=== PATIENT | male | born 1955 | race Hispanic/Latino ===

== ENCOUNTER 2017-02-22 22:30 | Emergency (ER) | payer OTHER ==
[2017-02-22 22:34] VITALS: BMI 26.7
[2017-02-22 22:42] VITALS: BP 139/89; PULSE 72; RESP 18; TEMP 98.7; O2SAT 98
[2017-02-22] MEDS ORDERED: Morphine 2 mg/ml ISec IVP STA (22:55)
[2017-02-22 22:56] LABS: BASO # 0.01 K/mm3 (0.0-2.0); BASO % 0.1 % (0.0-3.0); EOS # 0.1 (0.0-0.7); EOS % 1.1 % (1.5-5.0); GRAN # 5.39 (1.4-6.5); GRAN % 71.3 % (50.0-68.0); HEMOGLOBIN 14.2 gm/dL (14.0-18.0); LYMPH # 1.2 (1.2-3.4); LYMPH % 15.8 % (22.0-35.0); MEAN CELL VOLUME 94.7 fL (80.0-105.0); MEAN CORPUSCULAR HGB CONC 34.9 g/dl (31.0-37.0); MEAN PLATELET VOLUME 10.1 fl (7.0-11.0); MONO # 0.9 (0.1-0.6); MONO % 11.7 % (1.0-6.0); PLATELET COUNT 229 10^3/uL (120.0-450.0); RED CELL DISTRIBUTION WIDTH 13.4 % (11.5-14.5); WHITE BLOOD COUNT 7.6 10^3/ul (4.5-11.0)
--- NOTE | 2017-02-22 22:59 | ED PDOC ---
Arrival/HPI - General Chief Complaint: Abdominal Pain Time Seen by Provider: 02/22/17 22:34 Historian: Patient - History of Present Illness Narrative History of Present Illness (Text): 02/22/17 22:55 Dale Marcial is a 62 year old male, with a history of renal colic and PE, presents to the emergency department complaining of non-reducible umbilical hernia and abdominal pain. Denies any fever, chills, shortness of breath, chest pain, nausea, vomiting, diarrhea, urinary symptoms, or any other complaints at this time. Symptom Onset: Sudden Severity Level: Mild Activities at Onset: Light Past Medical History - Provider Review Nursing Documentation Reviewed: Yes - Cardiac Hx Cardiac Disorders: Yes Other/Comment: Hx of LE DVT - Pulmonary Hx Pulmonary Embolism: Yes - Neurological Hx Neurological Disorder: No - HEENT Hx HEENT Disorder: No - Renal Hx Kidney Stones: Yes - Endocrine/Metabolic Hx Endocrine Disorders: No - Hematological/Oncological Hx Blood Disorders: No - Integumentary Hx Dermatological Disorder: No - Musculoskeletal/Rheumatological Hx Falls: No - Gastrointestinal Hx Gastrointestinal Disorders: No - Genitourinary/Gynecological Hx Genitourinary Disorders: No - Psychiatric Hx Psychophysiologic Disorder: No Hx Substance Use: No - Anesthesia Hx Anesthesia: No Hx Anesthesia Reactions: No Hx Malignant Hyperthermia: No Family/Social History - Physician Review Nursing Documentation Reviewed: Yes Family/Social History: No Known Family HX Smoking Status: Never Smoked Hx Alcohol Use: No Hx Substance Use: No Allergies/Home Meds Allergies/Adverse Reactions: Allergies No Known Allergies Allergy (Verified 02/22/17 22:32) Home Medications: Home Meds Medication Instructions Recorded Confirmed Rivaroxaban [Xarelto] 20 mg PO DAILY 10/14/16 02/24/17 Mv,Reynaldo,Min/Iron/Folic Acid/Lut 1 tab PO DAILY 02/24/17 02/24/17 [Complete Multi Tablet] Review of Systems - Physician Review All systems were reviewed & negative as marked: Yes - Review of Systems Constitutional: Normal. absent: Fatigue, Fevers Respiratory: Normal. absent: SOB, Cough Cardiovascular: Normal. absent: Chest Pain, Palpitations Gastrointestinal: Abdominal Pain, Other (umbilical hernia ). absent: Constipation, Diarrhea, Nausea, Vomiting Genitourinary Male: Normal. absent: Dysuria, Frequency Neurological: Normal. absent: Headache, Dizziness Psychiatric: Normal Physical Exam Vital Signs Reviewed: Yes Vital Signs Temp Pulse Resp BP Pulse Ox 02/22/17 22:38 98.7 F 72 18 139/89 98 Temperature: Afebrile Blood Pressure: Normal Pulse: Regular Respiratory Rate: Normal Appearance: Positive for: Well-Appearing, Non-Toxic, Comfortable Pain Distress: None Mental Status: Positive for: Alert and Oriented X 3 - Systems Exam Head: Present: Atraumatic, Normocephalic Pupils: Present: PERRL Conjunctiva: Present: Normal Mouth: Present: Moist Mucous Membranes Respiratory/Chest: Present: Clear to Auscultation, Good Air Exchange. No: Respiratory Distress, Accessory Muscle Use Cardiovascular: Present: Regular Rate and Rhythm, Normal S1, S2. No: Murmurs Abdomen: Present: Tenderness, Normal Bowel Sounds, Hernias (incarcerated umbilical hernia ). No: Distention, Peritoneal Signs Upper Extremity: Present: Normal Inspection. No: Cyanosis, Edema Lower Extremity: Present: Normal Inspection. No: Edema Neurological: Present: GCS=15, CN II-XII Intact, Speech Normal, Motor Func Grossly Intact, Normal Sensory Function Skin: Present: Warm, Dry, Normal Color. No: Rashes Psychiatric: Present: Alert, Oriented x 3, Normal Insight, Normal Concentration Medical Decision Making ED Course and Treatment: 02/22/17 23:02 Impression: A 62 year old male who presents to the emergency department for evaluation of umbilical hernia. Plan: -- CT abdomen pelvis -- EKG -- Labs, caridac enzymes -- Morphine -- IV fluids -- Zofran -- Urinalysis -- Reassess and disposition Progress Notes: 02/22/17 22:47 EKG reviewed by me: NSR @ 70 bpm with sinus arrhythmia. Inferior infarct, age undetermined. CT Abdomen and Pelvis results reviewed: FINDINGS: Lower thorax: Small bilateral pleural effusions, with adjacent compressive atelectasis. ABDOMEN: Liver: The liver is enlarged. Gallbladder and bile ducts: No acute finding. No calcified stones. No intra- extrahepatic biliary ductal dilation. Pancreas: Limited evaluation secondary to the lack of intravenous contrast. Spleen: No acute findings. Adrenals: No acute findings. Kidneys and ureters: No obstructing stones. No hydronephrosis. PELVIS: Bladder: No acute findings. Reproductive: Phimosis is suggested. Appendix: The air filled appendix is of normal caliber (series 2, image 103). ABDOMEN and PELVIS: Stomach and bowel: A small bowel containing supraumbilical hernia is identified , with trace proximal dilatation, and trace distal decompression, suggesting early partial bowel obstruction. Peritoneum: As above. Lymph nodes: Limited evaluation without intravenous contrast. Vasculature: No aortic aneurysm. Bones: No acute fracture. IMPRESSION: Findings within the supraumbilical position suggesting early partial bowel obstruction secondary to a small bowel containing supraumbilical hernia. Additional findings, as detailed above. 02/22/17 23:32 Patient was evaluated by bedside who was partially able to reduce the hernia. Patient was cleared for outpatient surgery on Wednesday by Dr. York and advised to hold on Xeralto and wear an abdominal binder. Patient is stable for discharge. Advised to present to emergency department for new or worsening symptoms. - Lab Interpretations Lab Results: 02/22/17 22:45 02/22/17 22:45 Lab Results 02/22/17 23:10: Blood Type Confirm A POSITIVE 02/22/17 22:57: Blood Type A POSITIVE, Antibody Screen Negative, BBK History Checked No verified bt 02/22/17 22:45: Sodium 142, Potassium 3.9, Chloride 107, Carbon Dioxide 22, Anion Gap 17, BUN 25 H, Creatinine 0.8, Est GFR ( Amer) > 60, Est GFR ( Non-Af Amer) > 60, Random Glucose 91, Calcium 9.5, Total Bilirubin 0.5, AST 39, ALT 43, Alkaline Phosphatase 56, Lactate Dehydrogenase 432, Total Creatine Kinase 159, Troponin I < 0.01, Total Protein 6.8, Albumin 4.0, Globulin 2.8, Albumin/Globulin Ratio 1.4, Amylase 57, Lipase 73 02/22/17 22:45: PT 11.4, INR 1.06, APTT 30.8 02/22/17 22:45: WBC 7.6, RBC 4.30, Hgb 14.2, Hct 40.7 L, MCV 94.7, MCH 33.0, MCHC 34.9, RDW 13.4, Plt Count 229, MPV 10.1, Gran % 71.3 H, Lymph % (Auto) 15.8 L, [place] % (Auto) 11.7 H, Eos % (Auto) 1.1 L, Baso % (Auto) 0.1, Gran # 5.39 , Lymph # 1.2, [place] # 0.9 H, Eos # 0.1, Baso # 0.01 I have reviewed the lab results: Yes - RAD Interpretation Radiology Orders: 02/22/17 22:34 ABD & PELVIS W/O PO OR IV CONT [CT] Stat Head Tennis Coach: Radiologist - Medication Orders Current Medication Orders: Discontinued Medications Sodium Chloride (Sodium Chloride 0.9%) 1,000 mls @ 80 mls/hr IV .[id number] Last Admin: 02/22/17 23:15 Dose: 80 mls/hr Morphine Sulfate (Morphine) 2 mg IVP STAT STA Stop: 02/22/17 22:56 Last Admin: 02/22/17 23:15 Dose: 2 mg Ondansetron HCl (Zofran Inj) 4 mg IVP STAT STA Stop: 02/22/17 22:56 Last Admin: 02/22/17 23:15 Dose: 4 mg - Scribe Statement The provider has reviewed the documentation as recorded by the Radha Mccall Provider Attestation: Provider Scribe Attestation: All medical record entries made by the Khanhibmando were at my direction and personally dictated by me. I have reviewed the chart and agree that the record accurately reflects my personal performance of the history, physical exam, medical decision making, and the department course for this patient. I have also personally directed, reviewed, and agree with the discharge instructions and disposition. Disposition/Present on Arrival - Present on Arrival Any Indicators Present on Arrival: No History of DVT/PE: Yes History of Uncontrolled Diabetes: No Urinary Catheter: No History of Decub. Ulcer: No History Surgical Site Infection Following: None - Disposition Have Diagnosis and Disposition been Completed?: Yes Diagnosis: Umbilical hernia Disposition: HOME/ ROUTINE Disposition Time: 23:30 Condition: GOOD Discharge Instructions (ExitCare): Umbilical Hernia (ED) Referrals: Van Veras Jr., MD [Primary Care Provider] - Follow up with primary
[2017-02-22] MEDS ORDERED: Sodium Chloride 0.9% 1,000 ML IV SCH (23:00)
[2017-02-22 23:06] LABS: ALB/GLOB RATIO 1.4 (1.1-1.8); ALT/SGPT 43 U/L (7-56); AMYLASE 57 U/L (35-125); AST/SGOT 39 U/L (15-59); BLOOD UREA NITROGEN 25 mg/dL (7-21); CALCIUM 9.5 mg/dL (8.4-10.5); GFR AFRICAN-AMERICAN > 60; GFR NON-AFRICAN AMERICAN > 60; LIPASE 73 U/L (23-300)
[2017-02-22 23:15] LABS: INR 1.06 (0.93-1.08); PARTIAL THROMBOPLASTIN TIME 30.8 Seconds (23.7-30.8); PROTHROMBIN TIME 11.4 Seconds (9.9-11.8)
[2017-02-22 23:23] LABS: TROPONIN I < 0.01 ng/mL
--- NOTE | 2017-02-23 00:08 | CP.PCM.CON ---
<Mell Lewis - Last Filed: 02/22/17 23:56> History of Present Illness - History of Present Illness History of Present Illness: General Surgery Dr. Garcia 62 y/o M w/ PMHx of PE, DVT, nephrolithiasis, and ventral hernia presents to the ED c/o abd pain. Pain started that afternoon after a practice round of golf. Pt describes pain and sharp, stabbing pain, localized periumbilical. Pain is non-radiating. Pain worsened after afternoon round of golf at which time pt decided to come in for evaluation. Pt states at that time, hernia was bulging and TTP. Pt denies F/C, CP, SOB, N/V, D/C, numbness, tingling, weakness. CT Abd/Pelvis was performed in the ED read as early pSBO 2/2 smallbowel- containing supraumbilical hernia. PMHx: stated above Meds: reviewed in chart NKDA PSHx: IVC filter SHx: denies tobacco, EtOH, drug use FHx: non contributory Review of Systems - Review of Systems All systems: reviewed and no additional remarkable complaints except (see HPI) Past Patient History - Past Medical History & Family History Past Medical History?: Yes - Past Social History Smoking Status: Never Smoked - CARDIAC Hx Cardiac Disorders: Yes Other/Comment: Hx of LE DVT - PULMONARY Hx Pulmonary Embolism: Yes - NEUROLOGICAL Hx Neurological Disorder: No - HEENT Hx HEENT Problems: No - RENAL Hx Kidney Stones: Yes - ENDOCRINE/METABOLIC Hx Endocrine Disorders: No - HEMATOLOGICAL/ONCOLOGICAL Hx Blood Disorders: No - INTEGUMENTARY Hx Dermatological Problems: No - MUSCULOSKELETAL/RHEUMATOLOGICAL Hx Falls: No - GASTROINTESTINAL Hx Gastrointestinal Disorders: No - GENITOURINARY/GYNECOLOGICAL Hx Genitourinary Disorders: No - PSYCHIATRIC Hx Psychophysiologic Disorder: No Hx Substance Use: No - SURGICAL HISTORY Hx Surgeries: No - ANESTHESIA Hx Anesthesia: No Hx Anesthesia Reactions: No Hx Malignant Hyperthermia: No Meds Allergies/Adverse Reactions: Allergies Allergy/AdvReac Type Severity Reaction Status Date / Time No Known Allergies Allergy Verified 02/22/17 22:32 - Medications Medications: Current Medications Sodium Chloride (Sodium Chloride 0.9%) 1,000 mls @ 80 mls/hr IV .[id number] [facility] Last Admin: 02/22/17 23:15 Dose: 80 mls/hr Physical Exam - Constitutional Appears: Well, Non-toxic, No Acute Distress - Head Exam Head Exam: NORMAL INSPECTION - Eye Exam Eye Exam: Normal appearance - ENT Exam ENT Exam: Mucous Membranes Moist - Respiratory Exam Respiratory Exam: NORMAL BREATHING PATTERN. absent: Accessory Muscle Use, Respiratory Distress - Cardiovascular Exam Cardiovascular Exam: REGULAR RHYTHM. absent: Bradycardia, Tachycardia - GI/Abdominal Exam GI & Abdominal Exam: Hernia (ventral), Soft, Tenderness (minimal TTP periumbilical). absent: Distended, Guarding, Rebound - Extremities Exam Extremities exam: Positive for: normal inspection - Neurological Exam Neurological exam: Alert, Oriented x3 - Psychiatric Exam Psychiatric exam: Normal Affect, Normal Mood - Skin Skin Exam: Dry, Intact, Normal Color, Warm Results - Vital Signs Recent Vital Signs: Last Vital Signs Temp 98.7 F 02/22/17 22:38 Pulse 72 02/22/17 22:38 Resp 18 02/22/17 22:38 BP 139/89 02/22/17 22:38 Pulse Ox 98 02/22/17 22:38 - Labs Result Diagrams: 02/22/17 22:45 02/22/17 22:45 Labs: Laboratory Results - last 24 hr 02/22/17 02/22/17 02/22/17 22:45 22:45 22:45 WBC 7.6 RBC 4.30 Hgb 14.2 Hct 40.7 L MCV 94.7 MCH 33.0 MCHC 34.9 RDW 13.4 Plt Count 229 MPV 10.1 Gran % 71.3 H Lymph % (Auto) 15.8 L [place] % (Auto) 11.7 H Eos % (Auto) 1.1 L Baso % (Auto) 0.1 Gran # 5.39 Lymph # 1.2 [place] # 0.9 H Eos # 0.1 Baso # 0.01 PT 11.4 INR 1.06 APTT 30.8 Sodium 142 Potassium 3.9 Chloride 107 Carbon Dioxide 22 Anion Gap 17 BUN 25 H Creatinine 0.8 Est GFR ( Amer) > 60 Est GFR (Non-Af Amer) > 60 Random Glucose 91 Calcium 9.5 Total Bilirubin 0.5 AST 39 ALT 43 Alkaline Phosphatase 56 Lactate Dehydrogenase 432 Total Creatine Kinase 159 Troponin I < 0.01 Total Protein 6.8 Albumin 4.0 Globulin 2.8 Albumin/Globulin Ratio 1.4 Amylase 57 Lipase 73 BBK History Checked 02/22/17 22:57 WBC RBC Hgb Hct MCV MCH MCHC RDW Plt Count MPV Gran % Lymph % (Auto) [place] % (Auto) Eos % (Auto) Baso % (Auto) Gran # Lymph # [place] # Eos # Baso # PT INR APTT Sodium Potassium Chloride Carbon Dioxide Anion Gap BUN Creatinine Est GFR ( Amer) Est GFR (Non-Af Amer) Random Glucose Calcium Total Bilirubin AST ALT Alkaline Phosphatase Lactate Dehydrogenase Total Creatine Kinase Troponin I Total Protein Albumin Globulin Albumin/Globulin Ratio Amylase Lipase BBK History Checked No verified bt - Imaging and Cardiology CT scan - abdomen Status: Image reviewed by me, Report reviewed by me Assessment & Plan - Assessment and Plan (Free Text) Assessment: 62 y/o M w/ ventral hernia - reduced - cleared for D/C - scheduled for outpatient surgery Wednesday - Hold Xeralto - wear Abd binder when up and about - return to the ED if new, worsening, or concerning Sx develop. Pt seen and discussed w/ Dr. Radha Lewis DO PGY2 <Sudhakar Garcia - Last Filed: 03/07/17 20:13> Results - Vital Signs Recent Vital Signs: Last Vital Signs Temp 98.7 F 02/22/17 22:38 Pulse 72 02/22/17 22:38 Resp 18 02/22/17 22:38 BP 139/89 02/22/17 22:38 Pulse Ox 98 02/22/17 22:38 - Labs Result Diagrams: 02/22/17 22:45 02/22/17 22:45 Assessment & Plan - Assessment and Plan (Free Text) Plan: Patient was seen and examined by me. I agree with assessment and plan as per resident's note. - Date & Time Date: 02/22/17 Time: 21:00
--- NOTE | 2017-02-23 00:19 | CT ---
EXAM: CT Abdomen and Pelvis Without Intravenous Contrast CLINICAL HISTORY: 62 years old, male; Pain; Abdominal pain; Acute; Patient HX: Hernia; Additional info: Abd pain TECHNIQUE: Axial computed tomography images of the abdomen and pelvis without intravenous contrast. This CT exam was performed using one or more of the following dose reduction techniques: automated exposure control, adjustment of the mA and/or kV according to patient size, and/or use of iterative reconstruction technique. Coronal and sagittal reformatted images were created and reviewed. COMPARISON: No relevant prior studies available. FINDINGS: Lower thorax: Small bilateral pleural effusions, with adjacent compressive atelectasis. ABDOMEN: Liver: The liver is enlarged. Gallbladder and bile ducts: No acute finding. No calcified stones. No intra-extrahepatic biliary ductal dilation. Pancreas: Limited evaluation secondary to the lack of intravenous contrast. Spleen: No acute findings. Adrenals: No acute findings. Kidneys and ureters: No obstructing stones. No hydronephrosis. PELVIS: Bladder: No acute findings. Reproductive: Phimosis is suggested. Appendix: The air filled appendix is of normal caliber (series 2, image 103). ABDOMEN and PELVIS: Stomach and bowel: A small bowel containing supraumbilical hernia is identified, with trace proximal dilatation, and trace distal decompression, suggesting early partial bowel obstruction. Peritoneum: As above. Lymph nodes: Limited evaluation without intravenous contrast. Vasculature: No aortic aneurysm. Bones: No acute fracture. IMPRESSION: Findings within the supraumbilical position suggesting early partial bowel obstruction secondary to a small bowel containing supraumbilical hernia. Additional findings, as detailed above.
--- NOTE | 2017-02-23 12:40 | CARD ---
APPROVED REPORT EKG Measurement Heart [id number] <Conclusion> Normal sinus rhythm with sinus arrhythmia Inferior infarct, age undetermined Abnormal ECG
== END 2017-02-22 23:40 | disposition home or self-care (01) ==
LOC: ED 22:30
DX: K42.9 Umbilical hernia without obstruction or gangrene (principal)
CPT/HCPCS: 74176; 80053; 82150; 82550; 83615; 83690; 84484; 85025; 85610; 85730; 86850; 86900; 93005; 96374; 96375; 99283; J2270; J2405; J7040

== ENCOUNTER 2017-02-24 14:09 | Day surgery (SDC) | payer OTHER ==
[2017-02-24] MEDS ORDERED: Bupivacaine 0.5% Inj(30mL) ONE (16:44)
[2017-02-24] MEDS ORDERED: Midazolam 2 MG/2 ML VIAL ONE (17:54)
[2017-02-24] MEDS ORDERED: Propofol 10 mg/ml Inj (20 ML) ONE (17:54)
[2017-02-24] MEDS ORDERED: Rocuronium 10 mg/ml (5 ml) ONE (17:55)
[2017-02-24] MEDS ORDERED: Succinylcholine 200 mg/10 ml Inj IV ONE (17:55)
[2017-02-24] MEDS ORDERED: Etomidate 20 mg/10ml Inj IV ONE (17:55)
[2017-02-24] MEDS ORDERED: Phenylephrine 10 mg/ml Inj ONE (17:55)
[2017-02-24] MEDS ORDERED: Neostigmine Methylsulfate 3mg/3ml Syringe IV ONE (19:15)
[2017-02-24] MEDS ORDERED: Lactated Ringer's 1,000 ML IV SCH (19:27)
[2017-02-24] MEDS: HYDROmorphone 1 mg/ml ISec IVP PRN ×2 (19:30→19:55)
[2017-02-24] MEDS ORDERED: HYDROmorphone 1 mg/ml ISec IVP PRN (19:33)
--- NOTE | 2017-02-24 19:33 | PCM.SURG1 ---
Surgeon's Initial Post Op Note - Surgeon's Notes Surgeon: Dr. Garcia Gang Pusher: Dr. Henderson PGY3 Type of Anesthesia: General Endo Anesthesia Administered By: Simone Pre-Operative Diagnosis: Incarcerated Ventral Hernia Operative Findings: see operative note Post-Operative Diagnosis: same Operation Performed: Laparoscopic Ventral Hernia repair, with mesh Specimen/Specimens Removed: mesh inserted Estimated Blood Loss: EBL {In ML}: 5 Blood Products Given: N/A Drains Used: No Drains Post-Op Condition: Good Date of Surgery/Procedure: 02/24/17 Time of Surgery/Procedure: 19:32
[2017-02-24] MEDS ORDERED: Bupivacaine 0.25% Inj(30mL) ONE (19:52)
[2017-02-24] MEDS ORDERED: Lidocaine 1% Inj (20ml) ONE (19:53)
[2017-02-24] MEDS ORDERED: HYDROmorphone 1 mg/ml ISec ONE (19:57)
--- NOTE | 2017-02-25 07:03 | CP.PCM.PN ---
<Roosevelt Haywood - Last Filed: 02/25/17 06:59> Subjective - Date & Time of Evaluation Date of Evaluation: 02/25/17 Time of Evaluation: 06:59 - Subjective Subjective: Gen Sx: Dr Garcia Pt S&E. SOLANGE. POD#1 s/p laparoscopic ventral hernia repair. Pt states pain is well controlled. Tolerating liquid diet. Abdominal binder in place. Objective - Vital Signs/Intake and Output Vital Signs (last 24 hours): Temp Pulse Resp BP Pulse Ox 98.2 F 63 16 130/62 99 02/24/17 20:27 02/24/17 20:27 02/24/17 20:27 02/24/17 20:27 02/24/17 20:27 Intake and Output: 02/24/17 02/25/17 18:59 06:59 Intake Total 0 120 Balance 0 120 - Medications Medications: Current Medications Acetaminophen (Tylenol 325mg Tab) 650 mg PO Q6H PRN PRN Reason: Pain, moderate (4-7) Last Admin: 02/25/17 06:47 Dose: 650 mg Heparin Sodium (Porcine) (Heparin) 5,000 units SC Q12 LIZ PRN Reason: Protocol Hydromorphone HCl (Dilaudid) 1 mg IVP Q3H PRN PRN Reason: Pain, moderate (4-7) Ondansetron HCl (Zofran Inj) 4 mg IVP Q4H PRN PRN Reason: Nausea/Vomiting - Constitutional Appears: Non-toxic, No Acute Distress - Eye Exam Eye Exam: EOMI, Normal appearance - ENT Exam ENT Exam: Mucous Membranes Moist - Respiratory Exam Respiratory Exam: absent: Accessory Muscle Use, Respiratory Distress - GI/Abdominal Exam GI & Abdominal Exam: Soft, Tenderness (post-op and appropriate). absent: Distended, Firm, Guarding, Rigid Additional comments: laparoscopic incisions with dermabond. C/d/I - Neurological Exam Neurological Exam: Alert, Awake, Oriented x3 - Psychiatric Exam Psychiatric exam: Normal Affect, Normal Mood - Skin Skin Exam: Normal Color, Warm Assessment and Plan - Assessment and Plan (Free Text) Assessment: 62M POD#1 s/p laparoscopic ventral hernia repair Plan: adv diet to regular pt for venous duplex of LE today r/o DVT possible D/C this afternoon pending results will restart home meds prior to D/C will d/w Dr Radha Haywood, PGY3 <Sudhakar Garcia - Last Filed: 03/07/17 20:13> Objective - Vital Signs/Intake and Output Vital Signs (last 24 hours): Temp Pulse Resp BP Pulse Ox 98.4 F 60 20 113/79 98 02/25/17 07:38 02/25/17 07:38 02/25/17 07:38 02/25/17 07:38 02/25/17 07:38 - Labs Labs: 02/25/17 08:50 02/25/17 07:00 Assessment and Plan - Assessment and Plan (Free Text) Plan: Patient was seen and examined by me. I agree with assessment and plan as per resident's note.
[2017-02-25 07:39] VITALS: BP 113/79; PULSE 60; RESP 20; TEMP 98.4; O2SAT 98
[2017-02-25 08:01] LABS: BLOOD UREA NITROGEN 18 mg/dL (7-21); CALCIUM 8.8 mg/dL (8.4-10.5); GFR AFRICAN-AMERICAN > 60; GFR NON-AFRICAN AMERICAN > 60
[2017-02-25 09:07] LABS: BASO # 0.01 K/mm3 (0.0-2.0); BASO % 0.1 % (0.0-3.0); GRAN % 82.2 % (50.0-68.0); HEMOGLOBIN 13.1 gm/dL (14.0-18.0); LYMPH # 0.8 (1.2-3.4); LYMPH % 8.5 % (22.0-35.0); MEAN CELL VOLUME 96.5 fL (80.0-105.0); MEAN CORPUSCULAR HEMOGLOBIN 32.4 pg (25.0-35.0); MEAN CORPUSCULAR HGB CONC 33.6 g/dl (31.0-37.0); MEAN PLATELET VOLUME 10.5 fl (7.0-11.0); MONO # 0.8 (0.1-0.6); MONO % 9.2 % (1.0-6.0); PLATELET COUNT 208 10^3/uL (120.0-450.0); RBC 4.04 10^6/uL (3.5-6.1); RED CELL DISTRIBUTION WIDTH 13.6 % (11.5-14.5)
--- NOTE | 2017-02-25 09:42 | US ---
HISTORY: Leg pain and swelling. Evaluate for DVT PHYSICIAN(S): Denis Gunderson MD. TECHNIQUE: Duplex sonography and color-flow Doppler with graded compression were used to evaluate the deep venous systems of both lower extremities. FINDINGS: The visualized deep venous systems of both lower extremities are sonographically normal and compressible. Normal wave forms and augmentation are seen. There is no sonographic evidence for deep venous thrombosis in the visualized segments of both lower extremities. IMPRESSION: No sonographic evidence for deep venous thrombosis in the visualized segments of both lower extremities.
[2017-02-25 10:33] LABS: HDL CHOLESTEROL 50 mg/dL (29-60)
[2017-02-25 10:44] LABS: LDL CHOLESTEROL 71 mg/dL (0-129)
[2017-02-25 10:55] LABS: FREE T4 1.56 ng/dL (0.78-2.19)
--- NOTE | 2017-03-08 02:38 | OP ---
PROCEDURE DATE: 02/24/2017 PREOPERATIVE DIAGNOSIS: Incarcerated ventral hernia. POSTOPERATIVE DIAGNOSIS: Incarcerated ventral hernia. PROCEDURE PERFORMED: Laparoscopic repair of the incarcerated umbilical hernia with Symbotex mesh using 9 cm patch. SURGEON: Dr. Garcia. ANESTHESIOLOGIST: Dr. Nichols. ANESTHESIA: General endotracheal anesthesia. CHLOROBUTADIENE SCRUBBER OPERATOR: Dr. Henderson. SPECIMEN: None. ESTIMATED BLOOD LOSS: Minimal. INDICATIONS: The patient is a 62-year-old male who was earlier seen in the emergency room about 2 days before and had an incarcerated ventral hernia. At that time, hernia was reduced and the patient went home and was supposed to follow up r likely. However, the patient redeveloped hernia and now is complaining of further hurting and pain in the area and came in today to the operating room for immediate repair. DESCRIPTION OF PROCEDURE: The patient was brought to the operating room, placed on operating table in supine position. The patient was connected to the EKG, blood pressure, and pulse oximetry monitors. The patient then underwent general endotracheal anesthesia and was prepped and draped in usual sterile fashion. First a standard time-out procedure took place with everybody in the room agreed as to the patient's identity, diagnoses, and procedure to be performed. Using a 10 mm trocar, a straight scope was placed into it and under direct vision, through a small incision inferior to the left costal margin in the midclavicular line, access to the abdominal cavity was obtained. Once the trocar was passed through the layers of the abdominal wall and pneumoperitoneum was obtained, the careful evaluation of abdominal cavity revealed the presence of omentum as well as small bowel stuck into the hernia. A second 5 mm port was inserted in the anterior axillary line in the mid abdomen and careful pulling allowed me to tease out a small bowel from the hernia as well as the omentum from within the hernia. Once this was done, the edges of the hernia were cleared with cautery. Portion of the falciform ligament was taken down in order to make room for the Symbotex mesh and once this was all cleared, a 9 cm mesh was placed into the abdominal cavity with attached string appropriately oriented for the rough side to be against the abdominal wall. Once this was done, the patch was pulled up to the defect, which was about 2.5 cm in size. I then proceeded with tacking the patch to the anterior abdominal wall with 2 rows of dissolvable tacks. Once this was finished, careful evaluation of remaining portion of the abdominal cavity revealed no abnormalities. The bowel, liver and visible portion of stomach appeared to be within normal limits. I then proceeded with careful evaluation of the port sites which were not bleeding and ports were carefully removed after pneumoperitoneum was released. The wounds were then closed using 0 Vicryl for the fascia, 3-0 Vicryl for the subcutaneous tissue and 4-0 Monocryl for skin. Sterile Dermabond dressing was applied to the wound. The patient tolerated the procedure well and there were no complications. The patient was awakened and transferred to recovery room for further observation. Sudhakar Garcia MD
== END 2017-02-25 13:23 | disposition home or self-care (01) ==
LOC: EEVIPCON 14:09 → SDS 14:09 → 5RNO 20:43 → SDS 02-25 13:23
PROVIDERS: ATTEND General Practice
DX: K43.6 Other and unspecified ventral hernia with obstruction, without gangrene (principal)
CPT/HCPCS: 36415; 49653; 80048; 80061; 83036; 84153; 84439; 84443; 85025; 93970; C1781; J0330; J0690; J1100; J1170; J1644; J2001; J2250; J2370; J2405; J2704; J2710; J2765; J3010; J7120